=== PATIENT | female | born 1980 | race Caucasian/White ===

== ENCOUNTER 2020-01-25 01:24 | Outpatient (CLI) | payer BC, SELFPAY ==
[2020-01-25 19:20] LABS: SARS-CoV-2 RNA PCR Negative
== END 2020-01-25 01:25 | disposition home or self-care (01) ==
LOC: ANHCOVIDDT 01:24
PROVIDERS: PCP Obstetrics & Gynecology; Visit Provider Internal Medicine Gastroenterology
DX: Z01.812 Encounter for preprocedural laboratory examination (principal); Z20.828 Contact with and (suspected) exposure to other viral communicable diseases
CPT/HCPCS: 87635; C9803; U0003

== ENCOUNTER 2020-01-27 02:08 | Day surgery (SDC) | payer BC, SELFPAY ==
[2020-01-19 13:39] VITALS: BMI 32.0
[2020-01-27 08:08] VITALS: BP 134/92; PULSE 85; RESP 20; TEMP 36.3; O2SAT 100; BMI 31.4
--- NOTE | 2020-01-27 08:20 | WPDANESEPPF ---
Anes - Initial Pre Proc Eval Procedure: Operation Date: 01/27/20 09:00 Proposed Procedures p Screening Colonoscopy - Brady York MD Date/Time: 01/27/20 08:20 Surgeon: Brady York MD Pre Op Diagnosis: Family Hx Of Colon CA Patient Data Age: 39 Gender: F Height: 1.6 m Weight: 82 kg Allergies Allergy/AdvReac Type Severity Reaction Status Date / Time No Known Allergies Verified 01/27/20 08:07 Home Medications Medication Instructions Recorded Confirmed Type calcium carbonate-vitamin D3 1 tablet PO DAILY 01/19/20 01/19/20 History [Calcium 500 With D] escitalopram oxalate 5 mg PO DAILY 01/19/20 01/19/20 History multivitamin [Daily Multi-Vitamin] 1 tablet PO DAILY 01/19/20 01/19/20 History vitamin T30-tikml acid 1 tablet PO DAILY 01/19/20 01/19/20 History Patient hx anesthesia problems: none Family hx anesthesia problems: none PMFSH Social History Social History Smoking packs per day: 1 Smoking cigarettes per day: 20.0 Years smoked: 15 Smoking pack-years: 15.00 Smoking status: Former smoker Tobacco type: cigarettes Alcohol intake: former Substance use: former Substance use type: marijuana Anes - Eval Final PreProcedure Day of Procedure 01/27/20 08:20 Patient weight: obese Heart: regular rate and rhythm Lungs: clear to auscultation and normal air movement Airway: Mallampati scale class II Neurological: alert and oriented Last oral intake: >/= 8 hours ASA classification: II Emergent: no Anesthetic plan: proceed Anesthesia type and monitoring: general GIVS Informed Consent: The patient's anesthetic plan and its attendant risks and benefits were discussed with the patient/family/POA. Questions were solicited and answers provided to the satisfaction of the patient/family/POA.
--- NOTE | 2020-01-27 08:23 | P.HP_ITS ---
History of Present Illness History of Present Illness Consent: Risks, benefits, and alternatives have been discussed and questions answered. Patient agrees to proceed with procedure. Chief complaint: Family Hx Of Colon CA Narrative: Asia Spain is a 39 year old W female referred for screening colonoscopy secondary to family history of colon cancer her brother diagnosed in her 28. Patient states he had a colonoscopy 6 years ago which was normal. Patient is asymptomatic. She states she is not aware that her mother had genetic testing. [facility] Surgical History Surgical History (Updated 01/27/20 @ 08:24 by Brady York MD) History of bilateral tubal ligation History of dilatation and curettage Social History Social History Smoking packs per day: 1 Smoking cigarettes per day: 20.0 Years smoked: 15 Smoking pack-years: 15.00 Smoking status: Former smoker Tobacco type: cigarettes Alcohol intake: former Substance use: former Substance use type: marijuana Meds Home Medications and Allergies Home Medications Medication Instructions Recorded Confirmed Type calcium carbonate-vitamin D3 1 tablet PO DAILY 01/19/20 01/19/20 History [Calcium 500 With D] escitalopram oxalate 5 mg PO DAILY 01/19/20 01/19/20 History multivitamin [Daily Multi-Vitamin] 1 tablet PO DAILY 01/19/20 01/19/20 History vitamin J33-xgayo acid 1 tablet PO DAILY 01/19/20 01/19/20 History Allergies Allergy/AdvReac Type Severity Reaction Status Date / Time No Known Allergies Verified 01/27/20 08:07 Exam Const: Orientation/consciousness: patient oriented x3 Resp: Auscultation: clear to auscultation bilaterally Cardio: Rate: regular rate Rhythm: regular rhythm Heart sounds: no murmurs GI: GI Palp: Yes Soft to palpation, No Tenderness to palpation present (GI), Yes No hepatosplenomegaly present and No Palpable mass present Auscultation: normal bowel sounds Neuro: General: patient oriented x3 and no focal motor deficits Extrem: General: no pedal edema Assessment and Plan Additional Plan screening colonoscopy secondary to family history of colon cancer in her mother and young age in her 20
[2020-01-27] MEDS: LACTATED RINGERS 1,000 ML 150 ML IV CONT (08:26)
[2020-01-27 09:14] VITALS: BP 106/71; BP 122/84; BP 98/66; PULSE 68; PULSE 83; RESP 18; O2SAT 100
== END 2020-01-27 10:07 | disposition home or self-care (01) ==
PROVIDERS: PCP Obstetrics & Gynecology; Visit Provider Internal Medicine Gastroenterology
PROC: 0DJD8ZZ Inspection of Lower Intestinal Tract, Via Natural or Artificial Opening Endoscopic (ICD-10-PCS; CPT 45378; principal; 2020-01-27 09:00)
DX: Z12.11 Encounter for screening for malignant neoplasm of colon (principal); Z80.0 Family history of malignant neoplasm of digestive organs; Z87.891 Personal history of nicotine dependence
CPT/HCPCS: 45378; J2704; J7120